=== PATIENT | male | born 1960 | race African-American/Black ===

== ENCOUNTER 2016-09-22 01:16 | Emergency (ER) | payer SELFPAY ==
[~2016-09-22] VITALS: Ht 185.4 cm; Wt 83.0 kg
[2016-09-22] MEDS ORDERED: TRAMADOL 50MG TABLET PO PRN (07:15)
[2016-09-22] MEDS ORDERED: KETOROLAC 60MG/2ML VIAL IM ONE (07:15)
[2016-09-22 07:45] VITALS: BP 124/85
== END 2016-09-22 08:00 | disposition home or self-care (01) ==
LOC: ER 02:40
DX: R07.9 Chest pain, unspecified (principal); R06.02 Shortness of breath; I10 Essential (primary) hypertension; E78.00 Pure hypercholesterolemia, unspecified; F17.200 Nicotine dependence, unspecified, uncomplicated
CPT/HCPCS: 36415; 71010; 84484; 93005; 96372; 99285; J1885; Z7610